=== PATIENT | female | born 1980 | race African-American/Black ===

== ENCOUNTER 2016-08-11 15:47 | Observation (INO) | payer OTHER ==
--- NOTE | ~2016-08-11 | HP ---
Unit #: [id number] #: [id number] Patient: ALLEN NIXON [id number] [address] [place], [place] [address] [id number] MR#: [id number] NAME: ALLEN NIXON ROOM: 216 Age: 35 Sex: F Admission Date: 08/11/2016 : 1980 Attending Physician: Mk yLn M.D. Primary Care Physician: Florian Reyes M.D. HISTORY AND PHYSICAL CHIEF COMPLAINT Shortness of breath. HISTORY OF PRESENT ILLNESS The patient is a 35-year-old female with a history of asthma since 1993 brought to the emergency room complaining of worsening shortness of breath. The patient was recently seen at [facility] and received IV steroids and DuoNebs and was discharged home. The patient stated that for the last few days patient has been having gradually worsening shortness of breath, and she ran out of the nebulizers at home. The patient was seen in the emergency room, and for an unknown reason patient received prednisone oral instead of IV Solu-Medrol. The patient received breathing treatment without any improvement, and the ER physician decided to admit the patient for the asthma exacerbation. The patient is on room air and is requesting IV Solu-Medrol. She denies any fever, chills, nausea, vomiting, or productive cough. PAST MEDICAL HISTORY Asthma. PAST SURGICAL HISTORY Right foot surgery. HOME MEDICATIONS Symbicort and albuterol. ALLERGIES No known drug allergies. SOCIAL HISTORY Denies history of smoking. She drinks alcohol occasionally. No history of illicit drug abuse. Positive for passive smoking from her mother smoking in the house. FAMILY HISTORY Reviewed and none. REVIEW OF SYSTEMS A 14-point review of systems was performed and only pertinent positive findings are as described above. The remaining are negative. PHYSICAL EXAMINATION GENERAL: Patient is lying in bed not in acute distress. VITAL SIGNS: Temperature 98.6, pulse 105, respiratory rate 18, blood Unit #: [id number] #: [id number] Patient: ALLEN NIXON pressure 131/78, and saturating 100% on room air. HEENT: Head atraumatic, normocephalic. Pupils equal, round, and reactive to light and accommodation. Moist mucous membranes. NECK: Supple. No tenderness. LUNGS: Expiratory wheezing bilaterally. No rhonchi, no rales. HEART: Regular rate and rhythm. ABDOMEN: Soft. Positive bowel sounds. EXTREMITIES: No cyanosis, no clubbing. NEUROLOGIC: Alert, awake, and oriented. No gross focal motor deficit. DIAGNOSTIC STUDIES LABORATORY: Blood work is pending as it was not done by the ER physician. IMAGING: Chest x-ray shows no acute cardiopulmonary disease. ASSESSMENT Asthma exacerbation. PLAN Admit the patient to observation with med/surg. Patient will be started on IV Solu-Medrol 40 mg q.8 first dose now and DuoNebs q.4 p.r.n. Check urinalysis and call M.D. with the blood work that is ordered right now if abnormal. Further recommendations will follow. Dictated by Tino Chow TD: 08/11/2016 20:40 JOB #: [id number] HISTORY AND PHYSICAL Page 1 of 1 X MK LYN MD X HISTORY AND PHYSICAL
--- NOTE | ~2016-08-11 | DS ---
Unit #: [id number] #: [id number] Patient: ALLEN NIXON [id number] [facility] [address] [facility]. [place], [place] [address] [id number] Karli MR#: [id number] NAME: ALLEN NIXON ROOM: 216 Age: 35 Sex: F Admission Date: 08/11/2016 : 1980 Discharge Date: 08/13/2016 Attending Physician: Tamir Herbert M.D. Primary Care Physician: Florian Reyes M.D. DISCHARGE SUMMARY DISCHARGE DIAGNOSES 1. Asthma exacerbation. 2. Headache. Probable migraine. HOSPITAL COURSE The patient is a 35-year-old female who presented to [facility] secondary to some shortness of breath. Apparently she had recently been seen at [facility], where she was treated and discharged on oral steroids. Several days lapsed and the patient worsened. She presented to [facility]. In the emergency department she was started on steroids and ultimately admitted for the severity of her exacerbation. At the time of this dictation the patient is much improved. She states that she is no longer short of breath at rest and is now mildly short of breath with exertion. She is occasionally wheezy on expiration, which is an improvement from her near continuous expiratory wheezing upon admission. Given her improvement, the patient will receive one more dose of IV Solu-Medrol and discharge home on a prednisone taper and her albuterol. Of note, the patient complained of headache during this admission. She states that she has had it off and on for a couple of weeks. She received some kind of "shot" at [facility], which took away her headache, but it did return. She is lying motionless in a dark room, which seems to help. Given this, it is possible the patient has developed migraines and I will attempt a one-time dose of Imitrex. I have asked the patient to follow up with her primary care provider. DISCHARGE MEDICATIONS 1. Ventolin q.4 h. p.r.n. 2. Prednisone taper. FOLLOWUP As mentioned above, the patient is to follow up with her primary care provider in one week. Dictated by... Tamir Herbert M.D. CAM/gz Unit #: [id number] #: [id number] Patient: ALLEN NIXON TD: 08/13/2016 10:20 JOB #: [id number] DISCHARGE SUMMARY Page 1 of 1 X Tamir Herbert MD X DISCHARGE SUMMARY
--- NOTE | ~2016-08-11 | CR72 ---
[facility] A Service of [facility] RADIOLOGY TEXT RESULTS PATIENT: ALLEN NIXON LOCATION: [facility] : [birth year] UNIT #: [id number] AGE: [address]: Tamir Herbert MD SEX: F ORDER DR: [id number] [facility] [address] [place], [place] [address] [id number] MR#: [id number] Acc #: [id number] NAME: ALLEN NIXON : 1980 SEX: F STUDY DATE/TIME: 08/11/2016 16:58 UNIT: A ROOM: 216 STUDY DESCRIPTION: CR Chest Single View Portable Attending Physician: Tamir Herbert M.D. Ordering Physician: Joby Scott M.D. Primary Care Physician: Florian Reyes M.D. MEDICAL IMAGING REPORT This report is preliminary unless electronic signature is present EXAM Portable chest x-ray 08/11/2016 HISTORY Shortness of air. Cough, congestion, chest pain, began one week ago. Smoker for 6 years. History of asthma. TECHNIQUE AP radiograph of the chest is presented. COMPARISON 07/28/2016 FINDINGS Heart upper limits of normal in size, stable. The lungs are well-inflated. There is no indication of acute pulmonary disease. No pleural effusion or pneumothorax and no suspicious nodule. No acute appearing bony abnormality. Very mild thoracic scoliosis, slightly convex to right upper thoracic spine into left lower thoracic spine. Dictated by... Harry Sanchez M.D. THIS IS AN ELECTRONICALLY VERIFIED REPORT Harry Sanchez M.D. at 08/13/2016 11:34 AM LUBAK/femi TD: 08/12/2016 12:48 JOB #: [id number] [facility] A Service [facility] RADIOLOGY TEXT RESULTS PATIENT: ALLEN NIXON LOCATION: [facility] : 82 UNIT #: [id number] AGE: [address]: Tamir Herbert MD SEX: F ORDER DR: MEDICAL IMAGING REPORT Page 1 of 1 COPY
[~2016-08-11 15:47] MED LIST: AMOXICILLIN500 M1 PO; IBUPROFEN800 MG PO
[2016-08-11] MEDS ORDERED: ALBUTEROL17 GM INH (17:36)
[2016-08-11 18:28] LABS: BASOPHIL% 0.7 % (0-2.5); EOSINOPHIL# 0.4 X10e3 (0-0.7); EOSINOPHIL% 7.4 % (0.0-7.0); HEMATOCRIT 37.6 % (35.0-45.0); LYMPHOCYTE# 1.7 X10e3 (1.0-3.5); MEAN CELL VOLUME 84.4 FL (83-96); MEAN CORPUSCULAR HEMOGLOBIN 26.8 PG (28-34); MEAN CORPUSCULAR HGB CONC 31.8 g/dL (30-36); MEAN PLATELET VOLUME 9.1 FL (6.5-11.5); MONOCYTE# 0.6 X10e3 (0-1.0); NEUTROPHIL# 2.7 X10e3 (1.5-7.1); NEUTROPHIL% 49.9 % (40-75); PLATELET COUNT 194 X10e3 (140-420); RED BLOOD COUNT 4.46 X10e (3.90-5.30); RED CELL DISTRIBUTION WIDTH 13.3 % (11.0-15.5); WHITE BLOOD COUNT 5.4 X10e3 (4.0-10.5)
[2016-08-11 18:33] LABS: DIFF IND NO
[2016-08-11 18:45] LABS: CALCIUM SERUM 8.4 mg/dL (8.4-10.2); CREATININE SERUM 0.9 mg/dL (0.6-1.4); GLOM FILT RATE Estimated 97.4 mL/min (>60); POTASSIUM 3.7 mmol/L (3.5-5.1)
[2016-08-11 20:03] LABS: URINE SOURCE CLEAN CATCH
[2016-08-11 20:07] LABS: URINE APPEARANCE CLOUDY; URINE BILIRUBIN NEG (NEG); URINE BLOOD NEG (NEG); URINE COLOR YELLOW; URINE GLUCOSE NEG (NEG); URINE KETONE NEG (NEG); URINE LEUKOCYTE ESTERASE NEG (NEG); URINE NITRATE NEG (NEG); URINE PROTEIN NEG (NEG); URINE SPECIFIC GRAVITY 1.026 (1.003-1.035); URINE UROBILINOGEN 0.2 MG/DL (NEG)
[2016-08-11 20:12] LABS: CULTURE INDICATED? NO
[2016-08-12 04:57] LABS: HEMATOCRIT 39.6 % (35.0-45.0); HEMOGLOBIN 12.7 gm/dL (12.0-16.0); MEAN CELL VOLUME 83.5 FL (83-96); MEAN CORPUSCULAR HEMOGLOBIN 26.7 PG (28-34); MEAN PLATELET VOLUME 9.4 FL (6.5-11.5); RED BLOOD COUNT 4.75 X10e (3.90-5.30); RED CELL DISTRIBUTION WIDTH 13.4 % (11.0-15.5); WHITE BLOOD COUNT 6.9 X10e3 (4.0-10.5)
[2016-08-12 06:59] LABS: BUN/CREATININE RATIO 11.25; CALCIUM SERUM 9.3 mg/dL (8.4-10.2); CREATININE SERUM 0.8 mg/dL (0.6-1.4); GLOM FILT RATE Estimated 112.4 mL/min (>60); POTASSIUM 3.9 mmol/L (3.5-5.1)
[2016-08-13] MEDS ORDERED: ALBUTEROL17 GM INH (07:49)
[2016-08-13] MEDS ORDERED: PREDNISONE PO (07:51)
== END 2016-08-13 09:01 | disposition home or self-care (01) ==
LOC: CED 15:47 → CEDOF 18:15 → CED 19:02 → C2A 19:49 → CEDOF 19:49 → C2A 08-12 06:12
PROVIDERS: Emergency Medicine; Internal Medicine
DX: J45.901 Unspecified asthma with (acute) exacerbation (principal); R51 Headache
CPT/HCPCS: 71010; 80048; 81003; 84703; 85025; 85027; 94640; 94760; 96372; 96374; 96376; 99285; G0378; J1650; J2920

== ENCOUNTER → 2016-08-15 | Emergency (ER) | payer OTHER ==
[~2016-08-15] MED LIST changes: +ALBUTEROL17 GM INH; +PREDNISONE PO
== END | disposition home or self-care (01) ==
LOC: CED 03:36
DX: S30.1XXA Contusion of abdominal wall, initial encounter (principal); J45.909 Unspecified asthma, uncomplicated; W46.0XXA Contact with hypodermic needle, initial encounter; Y92.9 Unspecified place or not applicable
CPT/HCPCS: 99283